=== PATIENT | male | born 1930 | race Caucasian/White ===

== ENCOUNTER 2018-05-11 10:50 | Inpatient (IN) | payer OTHER ==
--- NOTE | 2018-05-11 11:33 | PDOC ---
History of Present Illness - General Chief Complaint: Respiratory Stated Complaint: FEVER Time Seen by Provider: 05/11/18 11:24 History Source: Patient Exam Limitations: No Limitations - History of Present Illness Initial Comments: 05/11/18 11:34 87 yo M with a hx of DM and CAD (s/p IA 15 years ago) presents to the emergency department with weakness, shortness of breath, and nausea. Per the patient, he had an URI 3-4 weeks ago and has been having residual SOB at rest without GONZALEZ. Concurrently, he has had poor appetite during this same period of time. Throughout the 4 weeks, he has been developing on and off fevers with last fever yesterday night of 102 F. He was seen by his PMD and had negative blood work, but was given ciprofloxacin for a suspected UTI with completion of abx. He has epigastric discomfort that has been ongoing for 1 week with associative nausea. Last BM was 2 days ago but has a hx of constipation. Denies the following: chest pain, visual changes, headaches, hematuria, dysuria, and diarrhea. Allergies: NKDA Social: Hx of tobacco use. Denies current use of tobacco, alcohol, and substance abuse. 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) HTN: Yes Hypercholesterolemia: Yes - Immunization History Td Vaccination: No TDAP Vaccination: No Immunization Up to Date: Yes - Suicide/Smoking/Psychosocial Hx Smoking Status: No Smoking History: Unknown if ever smoked Years of Tobacco Use: 0 Have you smoked in the past 12 months: No Number of Cigarettes Smoked Daily: 0 If you are a former smoker, when did you quit?: 15 yrs ago Cigars Per Day: 0 Hx Alcohol Use: Yes (1-2 glasses of wine with dinner) Drug/Substance Use Hx: No Substance Use Type: None Hx Substance Use Treatment: No Review of Systems - Review of Systems Able to Perform ROS?: Yes Is the patient limited Tamazight proficient: No Constitutional: Yes: Chills, Fever, Weakness. No: Diaphoresis HEENTM: No: Recent change in vision, Ear Pain, Nose Pain, Throat Pain, Mouth Pain Respiratory: Yes: Shortness of Breath. No: Cough, Hemoptysis Cardiac (ROS): No: Chest Pain, Lightheadedness, Palpitations, Syncope, Chest Tightness ABD/GI: Yes: Constipated, Nausea, Poor Appetite, Poor Fluid Intake. No: Diarrhea, Rectal Bleeding, Vomiting, Tarry Stools : No: Burning, Dysuria, Hematuria Musculoskeletal: No: Back Pain, Joint Pain, Neck Pain Integumentary: No: Bruising, Erythema, Rash Neurological: Yes: Weakness. No: Headache, Numbness, Tingling, Tremors, Ataxia Psychiatric: Yes: Change in Appetite Endocrine: Yes: Unexplained Weight Loss Hematologic/Lymphatic: No: Anemia *Physical Exam - Vital Signs Last Vital Signs Temp Pulse Resp BP Pulse Ox 98.2 F 90 18 91/50 L 99 05/11/18 11:12 05/11/18 11:12 05/11/18 11:12 05/11/18 11:12 05/11/18 11:12 - Physical Exam General Appearance: Yes: Nourished, Appropriately Dressed, Other (appears tired during exam). No: Apparent Distress, Alcohol on Breath, Intoxicated HEENT: positive: EOMI, HALI, Normal ENT Inspection, Normal Voice, Symmetrical, TMs Normal, Pharynx Normal, Hearing Grossly Normal, Other (dry mucosa). negative: Pale Conjunctivae, Scleral Icterus (R), Scleral Icterus (L), Muffled/ Hoarse voice, Pharyngeal Erythema, Tonsillar Exudate, Tonsillar Erythema, Nasal Congestion, Rhinorrhea, Sinus Tenderness, Excessive drooling Neck: positive: Trachea midline, Supple. negative: Tender, Lymphadenopathy (R) , Lymphadenopathy (L), Tender lateral, Tender midline Respiratory/Chest: positive: Lungs Clear, Normal Breath Sounds. negative: Chest Tender, Respiratory Distress, Crackles, Rales, Rhonchi, Stridor Cardiovascular: positive: Regular Rhythm, Regular Rate, S1, S2. negative: Systolic Murmur Gastrointestinal/Abdominal: positive: Normal Bowel Sounds, Flat, Soft. negative : Tender, Guarding, Rebound Lymphatic: negative: Adenopathy Musculoskeletal: positive: Normal Inspection. negative: CVA Tenderness, Vertebral Tenderness Extremity: positive: Normal Capillary Refill, Normal Inspection, Normal Range of Motion. negative: Tender Integumentary: positive: Normal Color, Dry, Warm. negative: Swelling, Ecchymosis Neurologic: positive: customs officer II-XII NML intact, Fully Oriented, Alert, Normal Mood/ Affect, Normal Response, Motor Strength 5/5. negative: EOM Palsy, Facial Droop Moderate Sedation - Procedure Monitoring Vital Signs: Procedure Monitoring Vital Signs Temperature 98.2 F 05/11/18 11:12 Pulse Rate 90 05/11/18 11:12 Respiratory Rate 18 05/11/18 11:12 Blood Pressure 91/50 L 05/11/18 11:12 O2 Sat by Pulse Oximetry (%) 99 05/11/18 11:12 Heart Score/ECG Review - ECG Intrepretation Comment:: ventricular rate is 74 bpm, NC is 220, QTc is 432 ms, QRS is 96 ms. Sinus rhythm with 1st degree AV block. 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 no st elevations or depressions. ED Treatment Course - LABORATORY CBC & Chemistry Diagram: 05/11/18 12:21 05/11/18 12:10 Medical Decision Making - Medical Decision Making 87 yo M with a hx of DM and CAD (s/p IA 15 years ago) presents to the emergency department with weakness, shortness of breath, and nausea. Initial vitals; Initial Vital Signs Temp Pulse Resp BP Pulse Ox 98.2 F 90 18 91/50 L 99 05/11/18 11:12 05/11/18 11:12 05/11/18 11:12 05/11/18 11:12 05/11/18 11:12 Work up: ddx: fever of unknown origin throughout the 4 weeks. pancreatitis vs gastroenteritis vs gastritis vs GERD vs PNA Laboratory Tests 05/11/18 05/11/18 05/11/18 12:10 12:10 12:10 WBC RBC Hgb Hct MCV MCH MCHC RDW Plt Count MPV Absolute Neuts (auto) Neutrophils % Lymphocytes % Monocytes % Eosinophils % Basophils % Nucleated RBC % PT with INR 14.70 H INR 1.24 H PTT (Actin FS) 27.9 VBG pH 7.35 POC VBG pCO2 49.2 POC VBG pO2 17.4 L* Mixed VBG HCO3 26.4 H Sodium 138 Potassium 4.2 Chloride 104 Carbon Dioxide 26 Anion Gap 8 BUN 24 H Creatinine 1.4 H Creat Clearance w eGFR 48.16 Random Glucose 175 H Lactic Acid Calcium 9.3 Total Bilirubin 0.4 AST 19 ALT 33 Alkaline Phosphatase 88 Troponin I B-Natriuretic Peptide Total Protein 7.1 Albumin 3.4 Lipase Urine Color Urine Appearance Urine pH Ur Specific [place] Urine Protein Urine Glucose (UA) Urine Ketones Urine Blood Urine Nitrite Urine Bilirubin Urine Urobilinogen Ur Leukocyte Esterase 05/11/18 05/11/18 05/11/18 12:10 12:10 12:10 WBC RBC Hgb Hct MCV MCH MCHC RDW Plt Count MPV Absolute Neuts (auto) Neutrophils % Lymphocytes % Monocytes % Eosinophils % Basophils % Nucleated RBC % PT with INR INR PTT (Actin FS) VBG pH POC VBG pCO2 POC VBG pO2 Mixed VBG HCO3 Sodium Potassium Chloride Carbon Dioxide Anion Gap BUN Creatinine Creat Clearance w eGFR Random Glucose Lactic Acid 2.2 H* Calcium Total Bilirubin AST ALT Alkaline Phosphatase Troponin I < 0.02 B-Natriuretic Peptide 731.2 H Total Protein Albumin Lipase 873 H Urine Color Urine Appearance Urine pH Ur Specific [place] Urine Protein Urine Glucose (UA) Urine Ketones Urine Blood Urine Nitrite Urine Bilirubin Urine Urobilinogen Ur Leukocyte Esterase 05/11/18 05/11/18 12:21 12:24 WBC 11.7 H RBC 3.98 L Hgb 11.9 Hct 35.0 L D MCV 87.9 MCH 29.8 MCHC 33.9 RDW 12.3 Plt Count 366 D MPV 6.3 L Absolute Neuts (auto) 9.0 H Neutrophils % 77.4 Lymphocytes % 12.9 D Monocytes % 7.9 Eosinophils % 0.5 Basophils % 1.3 Nucleated RBC % 0 PT with INR INR PTT (Actin FS) VBG pH POC VBG pCO2 POC VBG pO2 Mixed VBG HCO3 Sodium Potassium Chloride Carbon Dioxide Anion Gap BUN Creatinine Creat Clearance w eGFR Random Glucose Lactic Acid Calcium Total Bilirubin AST ALT Alkaline Phosphatase Troponin I B-Natriuretic Peptide Total Protein Albumin Lipase Urine Color Dkyellow Urine Appearance Clear Urine pH 5.0 Ur Specific [place] 1.025 Urine Protein Negative Urine Glucose (UA) Negative Urine Ketones Negative Urine Blood Negative Urine Nitrite Negative Urine Bilirubin Negative Urine Urobilinogen Negative Ur Leukocyte Esterase Negative leukocytosis at 11.7, lactic acid at 2.2, creatinine at 1.4, lipase at 873, and bnp at 731. BNP elevated from previous draw. patient has pancreatitis given the lipase levels and epigastric abdomen discomfort. cxr was negative for acute process. blood cultures were drawn and will admit to the hospital for fever of unknown origin work up. will make the patient NPO and give fluids and tylenol. Dispo: Admit. *DC/Admit/Observation/Transfer Diagnosis at time of Disposition: Fever of unknown origin Pancreatitis Qualifiers: Chronicity: acute Pancreatitis type: unspecified pancreatitis type Acute pancreatitis complication: unspecified Qualified Code(s): K85.90 - Acute pancreatitis without necrosis or infection, unspecified - Referrals - Patient Instructions - Post Discharge Activity
[2018-05-11] MEDS ORDERED: SODIUM CHLORIDE 1,000 ML IV STA (11:39)
[2018-05-11] MEDS ORDERED: ONDANSETRON 4 MG/2 ML VIAL IVPB ONE (12:28)
[2018-05-11 12:29] LABS: VENOUS PC02 49.2 mmHg (38-52); VENOUS PH 7.35 (7.32-7.42)
[2018-05-11] MEDS ORDERED: ONDANSETRON 4 MG/2 ML VIAL ONE (12:29)
[2018-05-11 12:35] LABS: VENOUS PO2 17.4 mmHg (28-48)
[2018-05-11 12:37] LABS: INR 1.24 (0.83-1.09); PROTHROMBIN TIME (PATIENT) 14.7 SEC (9.7-13.0)
[2018-05-11 12:40] LABS: ACTIVATED PTT 27.9 SECONDS (25.2-36.5)
[2018-05-11 12:41] LABS: BASO % 1.3 % (0-2.0); EOS % 0.5 % (0-4.5); HEMOGLOBIN 11.9 GM/dL (11.7-16.9); LYMPH % 12.9 % (8-40); MCH 29.8 pg (25.7-33.7); MCHC 33.9 g/dl (32.0-35.9); MEAN CELL VOLUME 87.9 fl (80-96); MEAN PLT VOLUME 6.3 fl (7.5-11.1); MONO % 7.9 % (3.8-10.2); NEUT % 77.4 % (42.8-82.8); PLATELET COUNT 366 K/MM3 (134-434); RBC 3.98 M/mm3 (4.00-5.60); RDW 12.3 % (11.9-15.9); WHITE BLOOD COUNT 11.7 K/mm3 (4.0-10.0)
[2018-05-11 12:50] LABS: N-TERMINAL BNP 731.2 pg/ml (5-450)
[2018-05-11 12:51] LABS: URINE APPEARANCE CLEAR; URINE BILIRUBIN NEGATIVE (<2.0 mg/dL); URINE COLOR DKYELLOW; URINE GLUCOSE (UA) NEGATIVE (NEGATIVE); URINE KETONE NEGATIVE (NEGATIVE); URINE LEUK ESTERASE NEGATIVE (NEGATIVE); URINE NITRITE NEGATIVE (NEGATIVE); URINE PROTEIN NEGATIVE (NEGATIVE); URINE UROBILINOGEN NEGATIVE mg/dL (0.2-1.0)
[2018-05-11 13:04] LABS: ALBUMIN 3.4 g/dl (3.4-5.0); ALK PHOS 88 U/L (45-117); ANION GAP 8 MMOL/L (8-16); BILIRUBIN,TOTAL 0.4 mg/dL (0.2-1); BLOOD UREA NITROGEN 24 mg/dL (7-18); CALCIUM 9.3 mg/dL (8.5-10.1); CHLORIDE 104 mmol/L (98-107); CO2 26 mmol/L (21-32); CREATININE 1.4 mg/dL (0.55-1.3); GLUCOSE,RANDOM 175 mg/dL (74-106); POTASSIUM 4.2 mmol/L (3.5-5.1); SGOT/AST 19 U/L (15-37); SGPT/ALT 33 U/L (13-61); SODIUM 138 mmol/L (136-145); TOT PROT 7.1 g/dl (6.4-8.2)
--- NOTE | 2018-05-11 13:32 | PDOC ---
Attending Attestation - Resident Resident Name: SvetaHeri - ED Attending Attestation I have performed the following: I have examined & evaluated the patient, The case was reviewed & discussed with the resident, I agree w/resident's findings & plan, Exceptions are as noted - HPI HPI: 05/11/18 13:28 87 year old male with past medical history of ACS, hypertension, hyperlipidemia , diabetes presents with fever. Approximately 2 weeks ago, the patient developed a fever 102. At that time, patient was treated with ciprofloxacin for urinary tract infection. A week ago, the patient had blood work performed which was reportedly negative but was treated again with ciprofloxacin for urinary tract infection as her somewhat blood cells in the urine. He completed the course but the patient has been feeling persistently generally weak. Yesterday, noted fever 102 again but no other symptoms. Patient does have intermittent upper epigastric abdominal pain from time to time. Has had decreased appetite. Last bowel movement was couple days ago but the patient typically is constipated. Because of the weakness and fever, the patient came to the ER. - Physicial Exam PE: 05/11/18 13:32 GENERAL: Awake, alert, and fully oriented, in no acute distress HEAD: No signs of trauma EYES: EOMI, sclera anicteric, conjunctiva clear ENT: Auricles normal inspection, hearing grossly normal, nares patent, Moist mucosa NECK: Normal ROM, supple, LUNGS: Breath sounds equal, clear to auscultation bilaterally. No wheezes, and no crackles HEART: Regular rate and rhythm, normal S1 and S2, no murmurs, rubs or gallops ABDOMEN: Soft, nontender, No guarding, no rebound. No masses EXTREMITIES: Normal range of motion, no edema. No clubbing or cyanosis. No cords, erythema, or tenderness NEUROLOGICAL: Cranial nerves II through XII grossly intact. Normal speech SKIN: Warm, Dry, normal turgor, no rashes or lesions noted. - Medical Decision Making 05/11/18 13:32 Vital Signs Temp Pulse Resp BP Pulse Ox 98.2 F 90 18 91/50 L 99 05/11/18 11:12 05/11/18 11:12 05/11/18 11:12 05/11/18 11:12 05/11/18 11:12 CBC, BMP 05/11/18 12:21 05/11/18 12:10 CMP Sodium 138 mmol/L (136-145) 05/11/18 12:10 Potassium 4.2 mmol/L (3.5-5.1) 05/11/18 12:10 Chloride 104 mmol/L (98-107) 05/11/18 12:10 Carbon Dioxide 26 mmol/L (21-32) 05/11/18 12:10 Anion Gap 8 MMOL/L (8-16) 05/11/18 12:10 BUN 24 mg/dL (7-18) H 05/11/18 12:10 Creatinine 1.4 mg/dL (0.55-1.3) H 05/11/18 12:10 Creat Clearance w eGFR 48.16 (>60) 05/11/18 12:10 Random Glucose 175 mg/dL (74-106) H 05/11/18 12:10 Lactic Acid 2.2 mmol/L (0.4-2.0) H* 05/11/18 12:10 Calcium 9.3 mg/dL (8.5-10.1) 05/11/18 12:10 Total Bilirubin 0.4 mg/dL (0.2-1) 05/11/18 12:10 AST 19 U/L (15-37) 05/11/18 12:10 ALT 33 U/L (13-61) 05/11/18 12:10 Alkaline Phosphatase 88 U/L (45-117) 05/11/18 12:10 Troponin I < 0.02 ng/ml (0.00-0.05) 05/11/18 12:10 B-Natriuretic Peptide 731.2 pg/ml (5-450) H 05/11/18 12:10 Total Protein 7.1 g/dl (6.4-8.2) 05/11/18 12:10 Albumin 3.4 g/dl (3.4-5.0) 05/11/18 12:10 Lipase 873 U/L (73-393) H 05/11/18 12:10 Urine Test Results Urine Color Dkyellow 05/11/18 12:24 Urine Appearance Clear 05/11/18 12:24 Urine pH 5.0 (5.0-8.0) 05/11/18 12:24 Ur Specific [place] 1.025 (1.010-1.035) 05/11/18 12:24 Urine Protein Negative (NEGATIVE) 05/11/18 12:24 Urine Glucose (UA) Negative (NEGATIVE) 05/11/18 12:24 Urine Ketones Negative (NEGATIVE) 05/11/18 12:24 Urine Blood Negative (NEGATIVE) 05/11/18 12:24 Urine Nitrite Negative (NEGATIVE) 05/11/18 12:24 Urine Bilirubin Negative (<2.0 mg/dL) 05/11/18 12:24 Ur Leukocyte Esterase Negative (NEGATIVE) 05/11/18 12:24 Patient is labs reviewed. Patient demonstrated have pancreatitis with lipase is 873 with upper abdominal pain. The patient also has fever of unknown origin. It is unclear what the etiology is. Blood cultures are drawn. Given the circumstances, the patient should be admitted to the hospital for further management and evaluation. We'll give IV fluids and admit. Heart Score/ECG Review #1 ECG reviewed & interpreted by me at: 11:40 05/11/18 13:35 NSR 74, 1st degree AV block, left axis deviation, Q wave II, III, aVF, no std/ judy, Q wave V5-V6, QTC 432 msec, low voltage. NSR 74 wit
[2018-05-11] MEDS ORDERED: ACETAMINOPHEN 1000 MG/100 ML VIAL (NON FORMULARY) IVPB ONE (13:58)
[2018-05-11] MEDS ORDERED: ACETAMINOPHEN INJECTION 100 ML IVPB ONE (14:01)
[2018-05-12 02:59] VITALS: BMI 25.4
[2018-05-12] MEDS ORDERED: FLU VACCINE QUAD 60 MCG/0.5 ML (MDV 18-19) IM ONE (02:59)
[2018-05-12] MEDS: DEXTROSE 5%-0.45% SALINE 1,000 ML IV SCH ×3 (05:34→19:57)
[2018-05-12] MEDS ORDERED: VANCOMYCIN 1,250 MG in DEXTROSE 5%-WATER - 250 ML IVPB ONE (12:15)
--- NOTE | 2018-05-12 12:15 | HP ---
DATE OF ADMISSION: 05/11/2018 DATE OF DICTATION: 05/12/2018 HISTORY: This is an 87-year-old known to have diabetes known to me for a few years. He was complaining of fever for the last few weeks. He saw me a week ago in the office and was started on Augmentin p.o. The patient did not have any relief. Fever persistent so came to the ER yesterday. After coming to the hospital, his T-max is 99.5, but this morning his blood culture is positive for gram-positive cocci in pairs. PHYSICAL EXAMINATION: Vital Signs: On examination blood pressure 110/60, pulse 70, respirations 20, temperature 99.5. HEENT: Unremarkable. Neck: Supple. No JVD. Lungs: Clear. Heart: S1, S2 normal. No S3, S4. Abdomen: Soft. Extremities: Legs no edema. Neurologic: Grossly normal. DIAGNOSTIC STUDIES: Chest x-ray: No acute pulmonary disease. Labs: WBC 11.7, hemoglobin 11.9, platelet count 356. Chemistry: Electrolytes are normal. Creatinine 1.4, BUN 24, lactic acid 2.2. B peptide 731. Lipase high 873. IMPRESSION: 1. Septicemia. 2. Diabetes. PLAN: IV antibiotics. Vancomycin ordered. Case discussed with . He will evaluate the patient soon. Blood sugar, insulin coverage ordered. FINAL DIAGNOSIS: 1. Septicemia. 2. Diabetes. SOCRATES SINGH M.D. [id number]
[2018-05-12] MEDS ORDERED: PT OWN MED DRAWER 7, Y5N ONE ×2 (13:39→22:31)
--- NOTE | 2018-05-12 13:42 | CON.ID ---
Consult Consult Specialty:: infectious diseases Referred by:: Reason for Consultation:: on going fevers - History of Present Illness Chief Complaint: fevers and weakness History of Present Illness: 87 year old male with past medical history of ACS, hypertension, hyperlipidemia , diabetes presents with fever. Approximately 2 weeks ago, the patient developed a fever 102. At that time, patient was treated with ciprofloxacin for urinary tract infection. A week ago, the patient had blood work performed which was reportedly negative but was treated again with ciprofloxacin for urinary tract infection . Yesterday, noted fever 102 again but no other symptoms. Patient does have intermittent upper epigastric abdominal pain from time to time. Has had decreased appetite. Last bowel movement was couple days ago but the patient typically is constipated. patient runs a restaurant and according to he has been having alternate constipation and dirrhoea he also has lost some weight patient currently weak patient has been having chills with fever and sweating - History Source History Provided By: Patient, Family Member Limitations to Obtaining History: No Limitations - Past Medical History Cardio/Vascular: Yes: CAD, HTN Endocrine: Yes: Diabetes Mellitus - Past Surgical History Past Surgical History: Yes: None - Alcohol/Substance Use Hx Alcohol Use: Yes (1-2 glasses of wine with dinner) History of Substance Use: reports: None - Smoking History Smoking history: Former smoker Have you smoked in the past 12 months: No Aproximately how many cigarettes per day: 0 If you are a former smoker, when did you quit?: 15 yrs ago - Social History ADL: Independent History of Recent Travel: No Home Medications - Allergies Allergies/Adverse Reactions: Allergies Allergy/AdvReac Type Severity Reaction Status Date / Time No Known Drug Allergies Allergy Verified 05/11/18 11:07 - Home Medications Home Medications: Ambulatory Orders Aspirin [ASA -] 81 mg PO DAILY 06/04/12 Metoprolol Succinate [Toprol XL -] 25 mg PO DAILY 06/04/12 metFORMIN HCL [Glucophage -] 1,000 mg PO BID 06/04/12 Olmesartan Medoxomil [Benicar -] 20 mg PO DAILY 02/03/13 Atorvastatin Ca [Lipitor] 20 mg PO HS 04/27/15 Sitagliptin Phosphate [Januvia -] 100 mg PO DAILY 04/27/15 Review of Systems - Review of Systems Constitutional: reports: Chills, Fever, Weakness, Other (sweats) HENT: reports: No Symptoms Neck: reports: No Symptoms Cardiovascular: reports: No Symptoms Respiratory: reports: No Symptoms Gastrointestinal: reports: Bloating, Constipation, Diarrhea Genitourinary: reports: No Symptoms Breasts: reports: No Symptoms Reported Musculoskeletal: reports: No Symptoms Integumentary: reports: No Symptoms Neurological: reports: No Symptoms Endocrine: reports: No Symptoms Hematology/Lymphatic: reports: No Symptoms Psychiatric: reports: No Symptoms Physical Exam Vital Signs: Vital Signs Temperature 98.1 F 05/12/18 09:04 Pulse Rate 70 05/12/18 09:04 Respiratory Rate 18 05/12/18 09:04 Blood Pressure 111/56 L 05/12/18 09:04 O2 Sat by Pulse Oximetry (%) 97 05/11/18 21:00 Constitutional: Yes: Well Nourished, Calm, Mild Distress, Other (weakness) Neck: Yes: Supple, Trachea Midline Respiratory: Yes: Regular, CTA Bilaterally Gastrointestinal: Yes: Normal Bowel Sounds, Soft Musculoskeletal: Yes: WNL Extremities: Yes: WNL Neurological: Yes: Alert, Oriented Psychiatric: Yes: Alert, Oriented Labs: CBC, BMP 05/11/18 12:21 05/11/18 12:10 Imaging - Results Chest X-ray: Report Reviewed, Image Reviewed Assessment/Plan this patient coming with ongoing fevers who has multiple medical problems gm positive bacteremia constipation/dirrhoea chills fevers plan will start patient on zosyn will order a ct scan of the abd and echo repeat blood cx tomorrow hydration rest continue current mgmt
--- NOTE | 2018-05-12 14:42 | EKG ---
Test Reason : Blood Pressure : / mmHG Vent. Rate : 074 BPM Atrial Rate : 074 BPM P-R Int : 220 ms QRS Dur : 096 ms QT Int : 390 ms P-R-T Axes : 023 -56 046 degrees QTc Int : 432 ms POOR DATA QUALITY, INTERPRETATION MAY BE ADVERSELY AFFECTED SINUS RHYTHM WITH 1ST DEGREE A-V BLOCK LEFT AXIS DEVIATION LOW VOLTAGE QRS INFERIOR INFARCT (CITED ON OR BEFORE 02-APR-2003) POSSIBLE ANTEROLATERAL INFARCT (CITED ON OR BEFORE 02-APR-2003) ABNORMAL ECG WHEN COMPARED WITH ECG OF 27-APR-2015 05:28, NO SIGNIFICANT CHANGE WAS FOUND Confirmed by Kain Gant MD ([id number]) on 05/12/2018 2:42:30 PM Referred By: Confirmed By:Kain Gant MD
[2018-05-12] MEDS ORDERED: PIPERACILLIN/TAZOBACTAM 3.375 GM VIAL IVPB ONE ×2 (15:35→19:25)
[2018-05-12] MEDS ORDERED: DEXTROSE 5%-WATER - 50 ML IVPB ONE ×2 (15:36→19:25)
[2018-05-12] MEDS: PIPERACILLIN/TAZOB 3.375 GM 3.375 GM in DEXTROSE 5%-WATER - 50 ML IVPB SCH ×2 (15:47→19:56)
[2018-05-12] MEDS: INSULIN SLIDING SCALE (NOVOLOG) 1 VIAL SQ SCH (18:20)
[2018-05-13] MEDS: DEXTROSE 5%-0.45% SALINE 1,000 ML IV SCH ×3 (00:01→19:16)
[2018-05-13] MEDS ORDERED: PIPERACILLIN/TAZOBACTAM 3.375 GM VIAL IVPB ONE ×4 (01:29→23:44)
[2018-05-13] MEDS ORDERED: DEXTROSE 5%-WATER - 50 ML IVPB ONE ×4 (01:29→23:44)
[2018-05-13] MEDS: PIPERACILLIN/TAZOB 3.375 GM 3.375 GM in DEXTROSE 5%-WATER - 50 ML IVPB SCH ×3 (01:54→17:59)
[2018-05-13] MEDS: INSULIN SLIDING SCALE (NOVOLOG) 1 VIAL SQ SCH ×3 (06:13→17:28)
[2018-05-13 07:36] LABS: HEMATOCRIT 31.3 % (35.4-49); HEMOGLOBIN 10.8 GM/dL (11.7-16.9); MCH 30.5 pg (25.7-33.7); MCHC 34.5 g/dl (32.0-35.9); MEAN CELL VOLUME 88.5 fl (80-96); MEAN PLT VOLUME 6.3 fl (7.5-11.1); PLATELET COUNT 350 K/MM3 (134-434); RBC 3.54 M/mm3 (4.00-5.60); RDW 12.3 % (11.9-15.9)
[2018-05-13 08:04] LABS: ALBUMIN 2.7 g/dl (3.4-5.0); ALK PHOS 76 U/L (45-117); ANION GAP 6 MMOL/L (8-16); BILIRUBIN,TOTAL 0.4 mg/dL (0.2-1); BLOOD UREA NITROGEN 8 mg/dL (7-18); CALCIUM 8.5 mg/dL (8.5-10.1); CHLORIDE 103 mmol/L (98-107); CO2 27 mmol/L (21-32); CREATININE 0.9 mg/dL (0.55-1.3); GLUCOSE,RANDOM 247 mg/dL (74-106); POTASSIUM 4.7 mmol/L (3.5-5.1); SGOT/AST 19 U/L (15-37); SGPT/ALT 39 U/L (13-61); SODIUM 136 mmol/L (136-145)
--- NOTE | 2018-05-13 11:49 | PN ---
Progress Note, Physician History of Present Illness: patient starting to feel better no complaints with him - Current Medication List Current Medications: Active Medications Dextrose/Sodium Chloride (D5-1/2ns -) 1,000 mls @ 125 mls/hr IV ASDIR JOSE Last Admin: 05/13/18 00:01 Dose: 125 mls/hr Piperacillin Sod/Tazobactam (Sod 3.375 gm/ Dextrose) 50 mls @ 100 mls/hr IVPB Q8H-IV JOSE; Protocol Last Admin: 05/13/18 10:39 Dose: 100 mls/hr Insulin Aspart (Novolog Vial Sliding Scale -) 1 vial SQ TIDAC JOSE; Protocol Last Admin: 05/13/18 11:11 Dose: 2 units - Objective Vital Signs: Vital Signs Temperature 98.6 F 05/13/18 06:00 Pulse Rate 71 05/13/18 06:00 Respiratory Rate 20 05/13/18 06:00 Blood Pressure 116/58 L 05/13/18 06:00 O2 Sat by Pulse Oximetry (%) 97 05/12/18 21:00 Constitutional: Yes: No Distress, Calm Cardiovascular: Yes: Regular Rate and Rhythm Respiratory: Yes: Regular, CTA Bilaterally Gastrointestinal: Yes: Normal Bowel Sounds, Soft Musculoskeletal: Yes: WNL Extremities: Yes: WNL Neurological: Yes: Alert, Oriented Psychiatric: Yes: Alert, Oriented Labs: CBC, BMP 05/13/18 06:40 05/13/18 06:40 INR, PTT INR 1.24 (0.83-1.09) H 05/11/18 12:10 Assessment/Plan gm positive bacteremia constipation/dirrhoea chills fevers plan continue abx await for ct scan read images seen will order repeat blood cx tomorrow rest as per the team
--- NOTE | 2018-05-13 12:24 | PN ---
Progress Note, Physician Chief Complaint: Feels better History of Present Illness: Group D strep septicemia cecilio Rouse ID consult appreciated, on IV zosyn - Current Medication List Current Medications: Active Medications Dextrose/Sodium Chloride (D5-1/2ns -) 1,000 mls @ 125 mls/hr IV ASDIR JOSE Last Admin: 05/13/18 00:01 Dose: 125 mls/hr Piperacillin Sod/Tazobactam (Sod 3.375 gm/ Dextrose) 50 mls @ 100 mls/hr IVPB Q8H-IV JOSE; Protocol Last Admin: 05/13/18 10:39 Dose: 100 mls/hr Insulin Aspart (Novolog Vial Sliding Scale -) 1 vial SQ TIDAC JOSE; Protocol Last Admin: 05/13/18 11:11 Dose: 2 units - Objective Vital Signs: Vital Signs Temperature 98.6 F 05/13/18 06:00 Pulse Rate 71 05/13/18 06:00 Respiratory Rate 20 05/13/18 06:00 Blood Pressure 116/58 L 05/13/18 06:00 O2 Sat by Pulse Oximetry (%) 97 05/12/18 21:00 Constitutional: Yes: No Distress Eyes: Yes: WNL HENT: Yes: WNL Neck: Yes: WNL Cardiovascular: Yes: WNL Respiratory: Yes: WNL Gastrointestinal: Yes: Normal Bowel Sounds ...Rectal Exam: Yes: WNL Genitourinary: Yes: WNL Breast(s): Yes: WNL Musculoskeletal: Yes: WNL Extremities: Yes: WNL Peripheral Pulses WNL: Yes Neurological: Yes: Alert Psychiatric: Yes: Alert Labs: CBC, BMP 05/13/18 06:40 05/13/18 06:40 INR, PTT INR 1.24 (0.83-1.09) H 05/11/18 12:10 Assessment/Plan Continue same trt
[2018-05-14] MEDS: DEXTROSE 5%-0.45% SALINE 1,000 ML IV SCH (01:55)
[2018-05-14] MEDS: PIPERACILLIN/TAZOB 3.375 GM 3.375 GM in DEXTROSE 5%-WATER - 50 ML IVPB SCH ×3 (01:55→17:04)
[2018-05-14] MEDS ORDERED: INSULIN (NOVOLOG) ASPART 100 UNITS/ML 10ML VIAL ONE ×2 (07:33→11:43)
[2018-05-14] MEDS ORDERED: INSULIN (LEVEMIR) 100 UNITS/ML UNITS SQ ONE (07:34)
[2018-05-14] MEDS: INSULIN SLIDING SCALE (NOVOLOG) 1 VIAL SQ SCH ×3 (08:26→17:18)
--- NOTE | 2018-05-14 09:05 | PN ---
Progress Note, Physician Chief Complaint: Feels better History of Present Illness: CT scan of abdomen showed bilateral nephrolithiasis no hydro nephrosis - Current Medication List Current Medications: Active Medications Piperacillin Sod/Tazobactam (Sod 3.375 gm/ Dextrose) 50 mls @ 100 mls/hr IVPB Q8H-IV JOSE; Protocol Last Admin: 05/14/18 01:55 Dose: 100 mls/hr Insulin Aspart (Novolog Vial Sliding Scale -) 1 vial SQ TIDAC JOSE; Protocol Last Admin: 05/14/18 08:26 Dose: 4 units - Objective Vital Signs: Vital Signs Temperature 98.2 F 05/14/18 07:51 Pulse Rate 62 05/14/18 07:51 Respiratory Rate 20 05/14/18 07:51 Blood Pressure 136/62 05/14/18 07:51 O2 Sat by Pulse Oximetry (%) 97 05/13/18 21:00 Constitutional: Yes: No Distress Eyes: Yes: WNL HENT: Yes: WNL Neck: Yes: WNL Cardiovascular: Yes: WNL Respiratory: Yes: WNL Gastrointestinal: Yes: WNL ...Rectal Exam: Yes: Deferred Breast(s): Yes: WNL Musculoskeletal: Yes: WNL Edema: No Peripheral Pulses WNL: Yes Integumentary: Yes: WNL Neurological: Yes: Alert Labs: CBC, BMP 05/13/18 06:40 05/13/18 06:40 INR, PTT INR 1.24 (0.83-1.09) H 05/11/18 12:10 Assessment/Plan DC iv fluids Advance diet
[2018-05-14] MEDS ORDERED: DEXTROSE 5%-WATER - 50 ML IVPB ONE ×2 (09:12→16:23)
[2018-05-14] MEDS ORDERED: PIPERACILLIN/TAZOBACTAM 3.375 GM VIAL IVPB ONE ×2 (09:12→16:23)
--- NOTE | 2018-05-14 12:11 | PN ---
Progress Note, Physician History of Present Illness: patient starting to feel better no complaints remaining afebrile - Current Medication List Current Medications: Active Medications Piperacillin Sod/Tazobactam (Sod 3.375 gm/ Dextrose) 50 mls @ 100 mls/hr IVPB Q8H-IV JOSE; Protocol Last Admin: 05/14/18 09:35 Dose: 100 mls/hr Insulin Aspart (Novolog Vial Sliding Scale -) 1 vial SQ TIDAC JOSE; Protocol Last Admin: 05/14/18 11:50 Dose: 2 units - Objective Vital Signs: Vital Signs Temperature 98.2 F 05/14/18 07:51 Pulse Rate 62 05/14/18 07:51 Respiratory Rate 20 05/14/18 07:51 Blood Pressure 136/62 05/14/18 07:51 O2 Sat by Pulse Oximetry (%) 97 05/13/18 21:00 Constitutional: Yes: No Distress, Calm Cardiovascular: Yes: Regular Rate and Rhythm Respiratory: Yes: Regular, CTA Bilaterally Gastrointestinal: Yes: Normal Bowel Sounds, Soft Musculoskeletal: Yes: WNL Extremities: Yes: WNL Neurological: Yes: Alert, Oriented Psychiatric: Yes: Alert, Oriented Labs: CBC, BMP 05/13/18 06:40 05/13/18 06:40 INR, PTT INR 1.24 (0.83-1.09) H 05/11/18 12:10 Assessment/Plan gm positive bacteremia constipation/dirrhoea chills fevers plan continue abx ct report noted repeat blood cx report pending rest as per the team
[2018-05-14 15:18] LABS: BABESIA MICROTI ANTIBODY IGG <1:10 (Neg:<1:10); BABESIA MICROTI ANTIBODY IGM <1:10 (Neg:<1:10)
--- NOTE | 2018-05-14 15:50 | ECHO ---
Name: ASCENCION BATRES Exam:Adult Echocardiogram Study Date: 05/14/2018 03:11 PM Age: 87 yrs Reason For Study: R/O Endocarditis Height: 74 in Weight: 198 lb BSA: 2.2 m2 MMode/2D Measurements & Calculations IVSd: 0.87 cm Ao root diam: 3.5 cm LVIDd: 5.0 cm LA dimension: 4.0 cm LVIDs: 3.3 cm LVPWd: 0.85 cm EDV(Teich): 120.6 ml TAPSE: 3.1 cm ESV(Teich): 44.0 ml Doppler Measurements & Calculations MV E max ke: 65.4 cm/sec Ao V2 max: 114.8 cm/sec MV A max ke: 77.0 cm/sec Ao max P.3 mmHg MV E/A: 0.85 AI P1/2t: 945.0 msec MV dec time: 0.15 sec AI max ke: 316.9 cm/sec LV V1 max P.7 mmHg AI max P.4 mmHg LV V1 max: 65.5 cm/sec AI dec slope: 98.2 cm/sec2 TR max ke: 219.2 cm/sec Med Peak E' Ke: 8.7 cm/sec TR max P.3 mmHg Med E/e': 7.5 Lat Peak E' Ke: 8.3 cm/sec Lat E/e': 7.9 Procedure A complete two-dimensional transthoracic echocardiogram was performed (2D, M-mode, Doppler and color flow Doppler). Left Ventricle The left ventricle is normal in size. Left ventricular systolic function is normal. Ejection Fraction = 55- 60%. No regional wall motion abnormalities noted. Right Ventricle The right ventricle is normal size. The right ventricular systolic function is normal. Atria The left atrial size is normal. Right atrial size is normal. Mitral Valve There is mild mitral annular calcification. There is no mitral regurgitation noted. Tricuspid Valve The tricuspid valve is normal in structure and function. There is mild tricuspid regurgitation. Right ventricular systolic pressure is normal. Aortic Valve There is mild aortic sclerosis.;. Trace aortic regurgitation. Pulmonic Valve The pulmonic valve is not well visualized. Great Vessels The aortic root is normal size. Pericardium/Pleura There is no pericardial effusion. Interpretation Summary The left ventricle is normal in size. Left ventricular systolic function is normal. No regional wall motion abnormalities noted. Ejection Fraction = 55-60%. The right ventricular systolic function is normal. The left atrial size is normal. Right atrial size is normal. There is mild mitral annular calcification. There is mild tricuspid regurgitation. Right ventricular systolic pressure is normal. There is mild aortic sclerosis. Trace aortic regurgitation. There is no pericardial effusion. Previous study is not available for comparison Drake Hudson MD 05/14/2018 03:49 PM
[2018-05-15] MEDS ORDERED: PIPERACILLIN/TAZOBACTAM 3.375 GM VIAL IVPB ONE ×3 (00:02→17:45)
[2018-05-15] MEDS ORDERED: DEXTROSE 5%-WATER - 50 ML IVPB ONE ×3 (00:03→17:45)
[2018-05-15] MEDS: PIPERACILLIN/TAZOB 3.375 GM 3.375 GM in DEXTROSE 5%-WATER - 50 ML IVPB SCH ×3 (01:56→18:01)
[2018-05-15] MEDS: INSULIN SLIDING SCALE (NOVOLOG) 1 VIAL SQ SCH ×3 (06:22→18:02)
--- NOTE | 2018-05-15 09:04 | PN ---
Progress Note, Physician Chief Complaint: Feels better History of Present Illness: Septicemia,Group D strep On zosyn Echo neg - Current Medication List Current Medications: Active Medications Piperacillin Sod/Tazobactam (Sod 3.375 gm/ Dextrose) 50 mls @ 100 mls/hr IVPB Q8H-IV JOSE; Protocol Last Admin: 05/15/18 01:56 Dose: 100 mls/hr Insulin Aspart (Novolog Vial Sliding Scale -) 1 vial SQ TIDAC JOSE; Protocol Last Admin: 05/15/18 06:22 Dose: 2 units - Objective Vital Signs: Vital Signs Temperature 98.1 F 05/15/18 06:13 Pulse Rate 64 05/15/18 06:13 Respiratory Rate 20 05/15/18 06:13 Blood Pressure 134/67 05/15/18 06:13 O2 Sat by Pulse Oximetry (%) 97 05/13/18 21:00 Constitutional: Yes: No Distress Eyes: Yes: WNL HENT: Yes: WNL Neck: Yes: WNL Cardiovascular: Yes: WNL Respiratory: Yes: WNL Gastrointestinal: Yes: WNL ...Rectal Exam: Yes: Deferred Genitourinary: Yes: WNL Breast(s): Yes: WNL Musculoskeletal: Yes: WNL Edema: No Peripheral Pulses WNL: Yes Neurological: Yes: Alert ...Motor Strength: WNL Psychiatric: Yes: Alert Labs: CBC, BMP 05/13/18 06:40 05/13/18 06:40 INR, PTT INR 1.24 (0.83-1.09) H 05/11/18 12:10 Assessment/Plan DC iv fluids Advance diet Rpt blood culture report pending Continue same trt
--- NOTE | 2018-05-15 13:55 | PN ---
Progress Note, Physician History of Present Illness: feels much better no complaints all results noted constipation - Current Medication List Current Medications: Active Medications Piperacillin Sod/Tazobactam (Sod 3.375 gm/ Dextrose) 50 mls @ 100 mls/hr IVPB Q8H-IV JOSE; Protocol Last Admin: 05/15/18 09:59 Dose: 100 mls/hr Insulin Aspart (Novolog Vial Sliding Scale -) 1 vial SQ TIDAC JOSE; Protocol Last Admin: 05/15/18 12:23 Dose: 2 units - Objective Vital Signs: Vital Signs Temperature 97.6 F 05/15/18 10:00 Pulse Rate 66 05/15/18 10:00 Respiratory Rate 20 05/15/18 10:00 Blood Pressure 127/55 L 05/15/18 10:00 O2 Sat by Pulse Oximetry (%) 97 05/15/18 09:00 Constitutional: Yes: No Distress, Calm Cardiovascular: Yes: Regular Rate and Rhythm Respiratory: Yes: Regular, CTA Bilaterally Gastrointestinal: Yes: Normal Bowel Sounds, Soft Musculoskeletal: Yes: WNL Extremities: Yes: WNL Neurological: Yes: Alert, Oriented Psychiatric: Yes: Alert, Oriented Labs: CBC, BMP 05/13/18 06:40 05/13/18 06:40 INR, PTT INR 1.24 (0.83-1.09) H 05/11/18 12:10 Assessment/Plan gm positive bacteremia constipation/dirrhoea chills fevers plan continue abx cx report noted will need total another 3 days of iv abx then will switch to oral
[2018-05-15] MEDS: POLYETHYLENE GLYCOL 3350 119 GM BTL PO PRN (16:25)
[2018-05-16] MEDS ORDERED: PIPERACILLIN/TAZOBACTAM 3.375 GM VIAL IVPB ONE ×3 (01:52→16:54)
[2018-05-16] MEDS ORDERED: DEXTROSE 5%-WATER - 50 ML IVPB ONE ×3 (01:52→16:55)
[2018-05-16] MEDS: PIPERACILLIN/TAZOB 3.375 GM 3.375 GM in DEXTROSE 5%-WATER - 50 ML IVPB SCH ×3 (01:57→18:04)
[2018-05-16] MEDS: INSULIN SLIDING SCALE (NOVOLOG) 1 VIAL SQ SCH ×3 (06:50→18:04)
[2018-05-16] MEDS ORDERED: PT OWN MED DRAWER 7, Y5N ONE (08:54)
--- NOTE | 2018-05-16 09:08 | PN ---
Progress Note, Physician Chief Complaint: Constipated History of Present Illness: Needs two more days of IV antibiotics - Current Medication List Current Medications: Active Medications Piperacillin Sod/Tazobactam (Sod 3.375 gm/ Dextrose) 50 mls @ 100 mls/hr IVPB Q8H-IV JOSE; Protocol Last Admin: 05/16/18 01:57 Dose: 100 mls/hr Insulin Aspart (Novolog Vial Sliding Scale -) 1 vial SQ TIDAC [facility]; Protocol Last Admin: 05/16/18 06:50 Dose: 2 units Polyethylene Glycol (Miralax (For Daily Use) -) 17 gm PO BID PRN PRN Reason: CONSTIPATION Last Admin: 05/15/18 16:25 Dose: 17 grams - Objective Vital Signs: Vital Signs Temperature 98.4 F 05/16/18 07:04 Pulse Rate 62 05/16/18 07:04 Respiratory Rate 20 05/16/18 07:04 Blood Pressure 133/64 05/16/18 07:04 O2 Sat by Pulse Oximetry (%) 97 05/15/18 20:08 Constitutional: Yes: No Distress Eyes: Yes: WNL HENT: Yes: WNL Neck: Yes: WNL Cardiovascular: Yes: WNL Respiratory: Yes: WNL Gastrointestinal: Yes: WNL ...Rectal Exam: Yes: Deferred Genitourinary: Yes: WNL Edema: No Peripheral Pulses WNL: Yes Labs: CBC, BMP 05/13/18 06:40 05/13/18 06:40 INR, PTT INR 1.24 (0.83-1.09) H 05/11/18 12:10 Assessment/Plan Miralax for constipation
[2018-05-16] MEDS: POLYETHYLENE GLYCOL 3350 119 GM BTL PO PRN (09:25)
--- NOTE | 2018-05-16 12:42 | PN ---
Progress Note, Physician History of Present Illness: improving cx have turned negative - Current Medication List Current Medications: Active Medications Piperacillin Sod/Tazobactam (Sod 3.375 gm/ Dextrose) 50 mls @ 100 mls/hr IVPB Q8H-IV JOSE; Protocol Last Admin: 05/16/18 09:25 Dose: 100 mls/hr Insulin Aspart (Novolog Vial Sliding Scale -) 1 vial SQ TIDAC JOSE; Protocol Last Admin: 05/16/18 11:43 Dose: 4 units Polyethylene Glycol (Miralax (For Daily Use) -) 17 gm PO BID PRN PRN Reason: CONSTIPATION Last Admin: 05/16/18 09:25 Dose: 17 grams - Objective Vital Signs: Vital Signs Temperature 98.4 F 05/16/18 07:04 Pulse Rate 62 05/16/18 07:04 Respiratory Rate 20 05/16/18 07:04 Blood Pressure 133/64 05/16/18 07:04 O2 Sat by Pulse Oximetry (%) 97 05/15/18 20:08 Constitutional: Yes: No Distress, Calm Cardiovascular: Yes: Regular Rate and Rhythm Respiratory: Yes: Regular, CTA Bilaterally Gastrointestinal: Yes: Normal Bowel Sounds, Soft Musculoskeletal: Yes: WNL Extremities: Yes: WNL Neurological: Yes: Alert, Oriented Psychiatric: Yes: Alert, Oriented Labs: CBC, BMP 05/13/18 06:40 05/13/18 06:40 INR, PTT INR 1.24 (0.83-1.09) H 05/11/18 12:10 Assessment/Plan gm positive bacteremia constipation/dirrhoea chills fevers plan continue abx cx report noted will need total another 2days of iv abx then can switch to oral augmentin for another 5 days
[2018-05-17] MEDS ORDERED: DEXTROSE 5%-WATER - 50 ML IVPB ONE ×3 (01:36→16:49)
[2018-05-17] MEDS ORDERED: PIPERACILLIN/TAZOBACTAM 3.375 GM VIAL IVPB ONE ×3 (01:36→16:48)
[2018-05-17] MEDS: PIPERACILLIN/TAZOB 3.375 GM 3.375 GM in DEXTROSE 5%-WATER - 50 ML IVPB SCH ×3 (02:14→17:00)
[2018-05-17] MEDS: INSULIN SLIDING SCALE (NOVOLOG) 1 VIAL SQ SCH ×3 (06:56→17:06)
--- NOTE | 2018-05-17 08:40 | PN ---
Progress Note, Physician Chief Complaint: Feels better History of Present Illness: On IV antibiotics for cepticemia - Current Medication List Current Medications: Active Medications Piperacillin Sod/Tazobactam (Sod 3.375 gm/ Dextrose) 50 mls @ 100 mls/hr IVPB Q8H-IV JOSE; Protocol Last Admin: 05/17/18 02:14 Dose: 100 mls/hr Insulin Aspart (Novolog Vial Sliding Scale -) 1 vial SQ TIDAC JOSE; Protocol Last Admin: 05/17/18 06:56 Dose: 2 units Polyethylene Glycol (Miralax (For Daily Use) -) 17 gm PO BID PRN PRN Reason: CONSTIPATION Last Admin: 05/16/18 09:25 Dose: 17 grams - Objective Vital Signs: Vital Signs Temperature 97.7 F 05/17/18 08:09 Pulse Rate 64 05/17/18 08:09 Respiratory Rate 18 05/17/18 08:09 Blood Pressure 141/77 05/17/18 08:09 O2 Sat by Pulse Oximetry (%) 97 05/15/18 20:08 Constitutional: Yes: No Distress Eyes: Yes: WNL HENT: Yes: WNL Neck: Yes: WNL Cardiovascular: Yes: WNL Respiratory: Yes: WNL Gastrointestinal: Yes: WNL ...Rectal Exam: Yes: Deferred Genitourinary: Yes: WNL Breast(s): Yes: WNL Musculoskeletal: Yes: Muscle Weakness Peripheral Pulses WNL: Yes Neurological: Yes: Alert ...Motor Strength: WNL Psychiatric: Yes: Alert Labs: CBC, BMP 05/13/18 06:40 05/13/18 06:40 INR, PTT INR 1.24 (0.83-1.09) H 05/11/18 12:10 Assessment/Plan Continue same trt
--- NOTE | 2018-05-17 15:42 | PN ---
Progress Note, Physician History of Present Illness: patient stable doing well - Current Medication List Current Medications: Active Medications Piperacillin Sod/Tazobactam (Sod 3.375 gm/ Dextrose) 50 mls @ 100 mls/hr IVPB Q8H-IV JOSE; Protocol Last Admin: 05/17/18 10:19 Dose: 100 mls/hr Insulin Aspart (Novolog Vial Sliding Scale -) 1 vial SQ TIDAC JOSE; Protocol Last Admin: 05/17/18 12:29 Dose: 4 units Polyethylene Glycol (Miralax (For Daily Use) -) 17 gm PO BID PRN PRN Reason: CONSTIPATION Last Admin: 05/16/18 09:25 Dose: 17 grams - Objective Vital Signs: Vital Signs Temperature 97.9 F 05/17/18 15:00 Pulse Rate 67 05/17/18 15:00 Respiratory Rate 05/17/18 15:00 Blood Pressure 125/68 05/17/18 15:00 O2 Sat by Pulse Oximetry (%) 97 05/15/18 20:08 Constitutional: Yes: No Distress, Calm Cardiovascular: Yes: Regular Rate and Rhythm Respiratory: Yes: Regular, CTA Bilaterally Gastrointestinal: Yes: Normal Bowel Sounds, Soft Musculoskeletal: Yes: WNL Extremities: Yes: WNL Neurological: Yes: Alert, Oriented Psychiatric: Yes: Alert, Oriented Labs: CBC, BMP 05/13/18 06:40 05/13/18 06:40 INR, PTT INR 1.24 (0.83-1.09) H 05/11/18 12:10 Assessment/Plan gm positive bacteremia constipation/dirrhoea chills fevers plan continue abx cx report noted tomorrow last day of abx then can switch to oral augmentin for another 5 days
[2018-05-18] MEDS ORDERED: DEXTROSE 5%-WATER - 50 ML IVPB ONE ×2 (01:08→08:31)
[2018-05-18] MEDS ORDERED: PIPERACILLIN/TAZOBACTAM 3.375 GM VIAL IVPB ONE ×2 (01:08→08:30)
[2018-05-18] MEDS: PIPERACILLIN/TAZOB 3.375 GM 3.375 GM in DEXTROSE 5%-WATER - 50 ML IVPB SCH ×3 (01:29→11:20)
[2018-05-18] MEDS: INSULIN SLIDING SCALE (NOVOLOG) 1 VIAL SQ SCH ×2 (06:58→12:39)
[2018-05-18 08:20] VITALS: BP 146/75; PULSE 61; TEMP 97.5
--- NOTE | 2018-05-18 08:39 | DS ---
Physical Examination Vital Signs: Vital Signs Temperature 97.5 F L 05/18/18 08:07 Pulse Rate 61 05/18/18 08:07 Respiratory Rate 16 05/18/18 08:07 Blood Pressure 146/75 05/18/18 08:07 O2 Sat by Pulse Oximetry (%) 97 05/15/18 20:08 Findings/Remarks: Admitted with fever,blood culture grew Grup D strep Treated with Zosyn ,improved,no fever DC home on PO antibiotics Constitutional: Yes: No Distress Eyes: Yes: WNL HENT: Yes: WNL Neck: Yes: WNL Cardiovascular: Yes: WNL Respiratory: Yes: WNL Gastrointestinal: Yes: WNL ...Rectal Exam: Yes: Deferred Musculoskeletal: Yes: WNL Edema: No Neurological: Yes: WNL Psychiatric: Yes: Alert Labs: CBC, BMP 05/13/18 06:40 05/13/18 06:40 Discharge Summary Reason For Visit: FEVER OF UNKNOWN ORIGIN,PANCREATITIS Current Active Problems Fever of unknown origin (Acute) Pancreatitis (Acute) - Instructions Referrals: Tyrone Jensen MD [Primary Care Provider] - - Home Medications Comprehensive Discharge Medication List: Ambulatory Orders Aspirin [ASA -] 81 mg PO DAILY 06/04/12 Metoprolol Succinate [Toprol XL -] 25 mg PO DAILY 06/04/12 metFORMIN HCL [Glucophage -] 1,000 mg PO BID 06/04/12 Olmesartan Medoxomil [Benicar -] 20 mg PO DAILY 02/03/13 Atorvastatin Ca [Lipitor] 20 mg PO HS 04/27/15 Sitagliptin Phosphate [Januvia -] 100 mg PO DAILY 04/27/15
--- NOTE | 2018-05-18 09:37 | PN ---
Progress Note, Physician History of Present Illness: patient stable no new issues feels much better - Current Medication List Current Medications: Active Medications Piperacillin Sod/Tazobactam (Sod 3.375 gm/ Dextrose) 50 mls @ 100 mls/hr IVPB Q8H-IV JOSE; Protocol Last Admin: 05/18/18 08:34 Dose: 100 mls/hr Insulin Aspart (Novolog Vial Sliding Scale -) 1 vial SQ TIDAC JOSE; Protocol Last Admin: 05/18/18 06:58 Dose: 2 units Polyethylene Glycol (Miralax (For Daily Use) -) 17 gm PO BID PRN PRN Reason: CONSTIPATION Last Admin: 05/16/18 09:25 Dose: 17 grams - Objective Vital Signs: Vital Signs Temperature 97.5 F L 05/18/18 08:07 Pulse Rate 61 05/18/18 08:07 Respiratory Rate 16 05/18/18 08:07 Blood Pressure 146/75 05/18/18 08:07 O2 Sat by Pulse Oximetry (%) 97 05/15/18 20:08 Constitutional: Yes: No Distress, Calm Cardiovascular: Yes: Regular Rate and Rhythm Respiratory: Yes: Regular, CTA Bilaterally Gastrointestinal: Yes: Normal Bowel Sounds, Soft Musculoskeletal: Yes: WNL Extremities: Yes: WNL Neurological: Yes: Alert, Oriented Psychiatric: Yes: Alert, Oriented Labs: CBC, BMP 05/13/18 06:40 05/13/18 06:40 INR, PTT INR 1.24 (0.83-1.09) H 05/11/18 12:10 Assessment/Plan gm positive bacteremia constipation/dirrhoea chills fevers plan continue abx cx report noted can stop abx after today rest as per the team
== END 2018-05-18 11:34 | disposition home or self-care (01) | DRG 871 ==
LOC: JER 10:50 → JERBED 13:10 → J8W 20:15
PROVIDERS: ADMIT Internal Medicine; ATTEND Internal Medicine
DX: A41.81 Sepsis due to Enterococcus (principal); K85.90 Acute pancreatitis without necrosis or infection, unspecified; E11.9 Type 2 diabetes mellitus without complications; I25.10 Atherosclerotic heart disease of native coronary artery without angina pectoris; I25.2 Old myocardial infarction; Z87.891 Personal history of nicotine dependence; K59.00 Constipation, unspecified; Z79.84 Long term (current) use of oral hypoglycemic drugs; E78.5 Hyperlipidemia, unspecified; I44.0 Atrioventricular block, first degree; R19.7 Diarrhea, unspecified; N20.0 Calculus of kidney
CPT/HCPCS: 36415; 71045-TC-FY; 74176-TC; 80053; 81003; 82803; 82962; 83036; 83605; 83690; 83880; 84484; 85025; 85027; 85610; 85730; 86618; 86753; 87040; 87086; 87186; 93005; 93010; 93306-TC; 97116-GP; 97161-GP; 99284-25; J0131; J7030

== ENCOUNTER 2018-08-03 10:18 | Emergency (ER) | payer OTHER ==
[2018-08-03 10:34] VITALS: TEMP 97.7; BMI 25.7
--- NOTE | 2018-08-03 11:38 | PDOC ---
History of Present Illness - General Chief Complaint: Pain, Acute Stated Complaint: RTJulieta SOTELO PAIN/uncontrolled gluose Time Seen by Provider: 08/03/18 11:11 History Source: Patient, Spouse Exam Limitations: No Limitations - History of Present Illness Initial Comments: 08/03/18 11:31 88 y/o male with PMH of DM, CAD, HTN, HLD presents to the ED with pain in right shoulder and elevated blood sugar. As per patient and his his right shoulder pain began last Monday while he was cutting meat. He denies any fall or trauma to the area- he has tried taking advil 3 times a day with slight relief. He denies any numbness or tingling to the area however states that it is slightly weak. He saw his primary care doctor yesterday who gave him percocet and told him to return to his office on Monday if he is not feeling any better. Patients brought him in today because his blood sugars were very elevated. His sugars normally range in the 150's-160's however the last 2- 3 readings have been in the high 200's low 300's; he has not had any changes to his diabetes medications however he does endorse that he is urinating more frequently over the past few days. He denies any chest pains, shortness of breath nausea/vomiting but does endorse a decrease in his appetite but no recent weight loss; no sick contacts or any recent travel. 08/03/18 11:40 08/03/18 11:43 Timing/Duration: 1 week Severity: mild Modifying Factors: improves with: immobilization, medication Associated Symptoms: reports: loss of appetite. denies: chest pain, cough Past History - Travel Traveled outside of the country in the last 30 days: No Close contact w/someone who was outside of country & ill: No - Past Medical History Allergies/Adverse Reactions: Allergies Allergy/AdvReac Type Severity Reaction Status Date / Time No Known Drug Allergies Allergy Verified 08/03/18 10:34 Home Medications: Ambulatory Orders Aspirin [ASA -] 81 mg PO DAILY 06/04/12 Metoprolol Succinate [Toprol XL -] 25 mg PO DAILY 06/04/12 metFORMIN HCL [Glucophage -] 1,000 mg PO BID 06/04/12 Olmesartan Medoxomil [Benicar -] 20 mg PO DAILY 02/03/13 Atorvastatin Ca [Lipitor] 20 mg PO HS 04/27/15 Sitagliptin Phosphate [Januvia -] 100 mg PO DAILY 04/27/15 Anemia: Yes Cardiac Disorders: Yes ([place] X2) COPD: No Diabetes: Yes (NIDDM) HTN: Yes Hypercholesterolemia: Yes - Immunization History Td Vaccination: No TDAP Vaccination: No Immunization Up to Date: Yes - Suicide/Smoking/Psychosocial Hx Smoking Status: No Smoking History: Never smoked Years of Tobacco Use: 0 Have you smoked in the past 12 months: No Number of Cigarettes Smoked Daily: 0 If you are a former smoker, when did you quit?: 15 yrs ago Cigars Per Day: 0 Hx Alcohol Use: No Drug/Substance Use Hx: No Substance Use Type: None Hx Substance Use Treatment: No Review of Systems - Review of Systems Able to Perform ROS?: Yes Is the patient limited Croatian proficient: No Constitutional: No: Weakness HEENTM: No: Blurred Vision Respiratory: No: Shortness of Breath Cardiac (ROS): No: Chest Pain ABD/GI: No: Nausea, Vomiting : No: Burning, Dysuria Musculoskeletal: Yes: Joint Pain (right shoulder pain ) Neurological: No: Headache, Numbness *Physical Exam - Vital Signs Last Vital Signs Temp Pulse Resp BP Pulse Ox 97.7 F 88 16 105/63 100 08/03/18 10:30 08/03/18 10:30 08/03/18 10:30 08/03/18 10:30 08/03/18 10:30 - Physical Exam General Appearance: Yes: Nourished Neck: positive: Normal Thyroid Respiratory/Chest: positive: Lungs Clear, Normal Breath Sounds Cardiovascular: positive: Regular Rhythm, Regular Rate, S1, S2 Gastrointestinal/Abdominal: positive: Flat, Soft. negative: Tender Musculoskeletal: negative: CVA Tenderness Neurologic: positive: Fully Oriented, Alert, Motor Strength 5/5 (4/5 RUE ; 5/5 LUE) ED Treatment Course - LABORATORY CBC & Chemistry Diagram: 08/03/18 11:35 08/03/18 11:35 - RADIOLOGY Radiology Studies Ordered: Category Date Time Status SHOULDER-RIGHT [RAD] Stat Radiology 08/03/18 11:30 Ordered Medical Decision Making - Medical Decision Making 08/03/18 11:46 cbc/cmp/ xray pain control reassess *DC/Admit/Observation/Transfer Diagnosis at time of Disposition: Shoulder pain - Discharge Dispostion Disposition: HOME Condition at time of disposition: Good - Referrals Referrals: Tyrone Jensen MD [Primary Care Provider] - Rei Hare DO [Staff Physician] - - Patient Instructions Printed Discharge Instructions: DI for Rotator Cuff Injury Additional Instructions: please follow up with Dr. Jensen within one week we are referring you to an orthopedist, Dr. Hare that we would like you to follow up with within one week please monitor your sugars and if you are seeing continued elevated readings please go to see your PCP to possibly adjust your medications please take tylenol for pain - Post Discharge Activity - Attestations Physician Attestion: 08/03/18 13:40 Kiana Gaspar
[2018-08-03 12:09] LABS: BASO % 0.8 % (0-2.0); EOS % 0.7 % (0-4.5); HEMATOCRIT 36.6 % (35.4-49); HEMOGLOBIN 12.2 GM/dL (11.7-16.9); MCH 29.1 pg (25.7-33.7); MCHC 33.3 g/dl (32.0-35.9); MEAN CELL VOLUME 87.5 fl (80-96); MEAN PLT VOLUME 6.3 fl (7.5-11.1); MONO % 10.9 % (3.8-10.2); NEUT % 69.6 % (42.8-82.8); PLATELET COUNT 386 K/MM3 (134-434); RBC 4.19 M/mm3 (4.00-5.60); WHITE BLOOD COUNT 8.2 K/mm3 (4.0-10.0)
[2018-08-03 12:25] LABS: ALBUMIN 3.2 g/dl (3.4-5.0); ALK PHOS 88 U/L (45-117); ANION GAP 5 MMOL/L (8-16); BILIRUBIN,TOTAL 0.3 mg/dL (0.2-1); BLOOD UREA NITROGEN 14 mg/dL (7-18); CHLORIDE 102 mmol/L (98-107); CO2 31 mmol/L (21-32); CREATININE 0.9 mg/dL (0.55-1.3); GLUCOSE,RANDOM 239 mg/dL (74-106); POTASSIUM 4.7 mmol/L (3.5-5.1); SGOT/AST 11 U/L (15-37); SGPT/ALT 17 U/L (13-61); SODIUM 137 mmol/L (136-145); TOT PROT 7.1 g/dl (6.4-8.2)
[2018-08-03] MEDS ORDERED: KETOROLAC TROMETHAMINE 15 MG/ML VIAL IVPUSH ONE (12:33)
[2018-08-03] MEDS ORDERED: KETOROLAC TROMETHAMINE 15 MG/ML VIAL ONE (12:40)
[2018-08-03 14:00] VITALS: BP 118/72; PULSE 84
--- NOTE | 2018-08-03 14:12 | PDOC ---
Documentation entered by Melissa Reynoso SCRIBE, acting as scribe for Agata Das MD. Agata Das MD: This documentation has been prepared by the Edgardo lim Daisy, SCRIBE, under my direction and personally reviewed by me in its entirety. I confirm that the documentation accurately reflects all work, treatment, procedures, and medical decision making performed by me. Attending Attestation - Resident Resident Name: ChasityKiana - ED Attending Attestation I have performed the following: I have examined & evaluated the patient, The case was reviewed & discussed with the resident, I agree w/resident's findings & plan - HPI HPI: 08/03/18 13:35 The patient is a 88 YOM with a PMH of DM, CAD, HTN, and HD presents to the ED for evaluation of right shoulder pain that began in the setting of cutting meat a week ago. Denies any trauma to the right shoulder. Denies recent falls. Has been taking advil and tylenol with no relief. Patient was seen by his PCP yesterday and given percocets, which he took 3 of with no improvement. Patient is also complaining of elevated blood glucose readings since last night. Allergies: NKDA Social Hx: Denies toxic habits Surgeries: Denies - Physicial Exam PE: 08/03/18 13:58 ADULT EXAM GENERAL: Awake, alert, and fully oriented, in no acute distress HEAD: No signs of trauma LUNGS: Breath sounds equal, clear to auscultation bilaterally. No wheezes, and no crackles HEART: Regular rate and rhythm, normal S1 and S2, no murmurs, rubs or gallops ABDOMEN: Soft, nontender, normoactive bowel sounds. No guarding, no rebound. No masses EXTREMITIES: (+) Unable to abduct the right arm. No tenderness. No bony deformities. No edema. No clubbing or cyanosis. No cords, erythema. NEUROLOGICAL: Cranial nerves II through XII grossly intact. Normal speech, normal gait - Medical Decision Making 08/03/18 14:10 Pt presents to the ED complaining of R shoulder pain and elevated FS. Shoulder pain is consistent with rotator cuff tear. Will refer to ortho. FS is 239-- will refer to PMD for improved glycemic control.
== END 2018-08-03 14:00 | disposition home or self-care (01) ==
LOC: JER 10:18
PROC: 3E0333Z Introduction of Anti-inflammatory into Peripheral Vein, Percutaneous Approach (ICD-10-PCS; principal; 2018-08-03)
DX: M25.511 Pain in right shoulder (principal); E11.9 Type 2 diabetes mellitus without complications; I25.10 Atherosclerotic heart disease of native coronary artery without angina pectoris; I10 Essential (primary) hypertension; E78.5 Hyperlipidemia, unspecified; I25.2 Old myocardial infarction; Z87.891 Personal history of nicotine dependence
CPT/HCPCS: 36415; 73030-TC-RT-FY; 80053; 84484; 85025; 85651; 86140; 96374; 99282-25

== ENCOUNTER 2018-08-12 16:45 | Emergency (ER) | payer OTHER ==
[2018-08-12 16:50] VITALS: BP 131/66; PULSE 80; TEMP 97.6; BMI 24.3
[2018-08-12] MEDS ORDERED: ACETAMINOPHEN 325 MG TABLET (FP) PO ONE (17:10)
--- NOTE | 2018-08-12 18:06 | PDOC ---
Documentation entered by Asia Mirza SCRIBE, acting as scribe for Parag Chatman MD. Parag Chatman MD: This documentation has been prepared by the Yuki lim Nirvannie, SCRIBE, under my direction and personally reviewed by me in its entirety. I confirm that the documentation accurately reflects all work, treatment, procedures, and medical decision making performed by me. History of Present Illness - General Chief Complaint: Injury Stated Complaint: FALL Time Seen by Provider: 08/12/18 17:07 History Source: Patient Exam Limitations: No Limitations - History of Present Illness Initial Comments: 08/12/18 17:56 The patient is a 88 year old male, with a significant past medical history of CAD (s/p CA 15 years ago), hypertension, hyperlipidemia, chronic shoulder pain, diabetes, who presents to the emergency department s/p mechanical fall with left knee pain. As per patient, he was attempting to reach for something when he felt a sharp pain in his left knee subsequently falling on the floor on his buttocks. He was able to use his arm to hold onto something to break the momentum f his fall. Denies any head injury/loc, neck pain, back pain. He denies any recent fevers, chills, headache or dizziness. He denies any recent chest pain or shortness of breath. He denies any recent dysuria or hematuria. Allergies: NKDA Primary Care Physician: Tyrone Gonsalves Past History - Past Medical History Allergies/Adverse Reactions: Allergies Allergy/AdvReac Type Severity Reaction Status Date / Time No Known Drug Allergies Allergy Verified 08/03/18 10:34 Home Medications: Ambulatory Orders Aspirin [ASA -] 81 mg PO DAILY 06/04/12 Metoprolol Succinate [Toprol XL -] 25 mg PO DAILY 06/04/12 metFORMIN HCL [Glucophage -] 1,000 mg PO BID 06/04/12 Olmesartan Medoxomil [Benicar -] 20 mg PO DAILY 02/03/13 Atorvastatin Ca [Lipitor] 20 mg PO HS 04/27/15 Sitagliptin Phosphate [Januvia -] 100 mg PO DAILY 04/27/15 Anemia: Yes Cardiac Disorders: Yes (CA X2) COPD: No Diabetes: Yes (NIDDM) HTN: Yes Hypercholesterolemia: Yes - Immunization History Td Vaccination: No TDAP Vaccination: No Immunization Up to Date: Yes - Suicide/Smoking/Psychosocial Hx Smoking Status: No Smoking History: Unknown if ever smoked Years of Tobacco Use: 0 Have you smoked in the past 12 months: No Number of Cigarettes Smoked Daily: 0 If you are a former smoker, when did you quit?: 15 yrs ago Cigars Per Day: 0 Information on smoking cessation initiated: No Hx Alcohol Use: No Drug/Substance Use Hx: No Substance Use Type: None Hx Substance Use Treatment: No Review of Systems - Review of Systems Able to Perform ROS?: Yes Comments:: 08/12/18 17:57 CONSTITUTIONAL: No reported: Fever, Chills, Diaphoresis, Generalized Weakness, Malaise, Loss of Appetite CARDIOVASCULAR: No reported: Chest Pain, Syncope, Palpitations, Irregular Heart Rate, Lightheadedness, Peripheral Edema RESPIRATORY: No reported: Cough, Shortness of Breath, SOB with Exertion, Orthopnea, Wheezing , Stridor, Hemoptysis GASTROINTESTINAL: No reported: Abdominal pain, Abdominal Distension, Nausea, Vomiting, Diarrhea, Melena, Hematochezia GENITOURINARY: No reported: Dysuria, Frequency, Urgency, Hesitancy, Flank Pain, Genital Pain MUSCULOSKELETAL: Present: Left knee pain. No reported:Back pain, Neck Pain SKIN: No reported: Rash, Itching, Pallor NEUROLOGIC: No reported: Headache, Focal Weakness, Paresthesias, Vertigo, Lightheadedness, Unsteady Gait, Seizure, Mental Status Changes, Incontinence PSYCHIATRIC: No reported: Anxiety, Depression All Other Systems: Reviewed and Negative *Physical Exam - Vital Signs Last Vital Signs Temp Pulse Resp BP Pulse Ox 97.6 F 80 16 131/66 100 08/12/18 16:47 08/12/18 16:47 08/12/18 16:47 08/12/18 16:47 08/12/18 16:47 - Physical Exam Comments: 08/12/18 17:38 GENERAL: The patient is awake, alert, and fully oriented, Nontoxic - in no acute distress. HEAD: Normocephalic, atraumatic. EYES: extraocular movements intact, sclera anicteric, conjunctiva clear. ENT: Normal voice, Moist mucous membranes. NECK: Normal range of motion, supple LUNGS: Breath sounds equal, clear to auscultation bilaterally. No wheezes, no rhonchi, no rales. HEART: Regular rate and rhythm, normal S1 and S2 without murmur, rub or gallop. ABDOMEN: Soft, nontender, No guarding, no rebound. No CVA tenderness Back: No midline tenderness to the cervical, thoracic or lumbar spine Musculoskelatal: FROM of b/l shoulders, elbows, wrist. FROM of hips, ankles - No signs of ecchymosis, erythema, or crepitus noted on palpation extremities, chest wall, clavicals, ribs, back. Mild limintation of ROM of L knee at approx 115 degrees of flexion. No focal bony ttp but there is minimal ttp at the joint space of L knee inferior to patella. no effusions appreaciated NEUROLOGICAL: No facial assymetry, Normal speech, normal symmetric movementof extremities PSYCH: Normal mood, normal affect. SKIN: Warm, Dry, normal turgor, General Appearance: Yes: Nourished ED Treatment Course - RADIOLOGY Radiology Studies Ordered: Category Date Time Status KNEE 3 POS-LEFT [RAD] Stat Radiology 08/12/18 17:10 Taken - Medications Given in the ED: ED Medications Discontinued Medications Generic Name Dose Route Start Last Admin Trade Name Freq PRN Reason Stop Dose Admin Acetaminophen 650 mg 08/12/18 17:10 08/12/18 17:24 Tylenol - PO 08/12/18 17:11 650 mg ONCE ONE Administration Medical Decision Making - Medical Decision Making 08/12/18 17:40 ptpresent sp fall. felt weakness of L knee when reaching for something, fell on his behind and was able to break fall with his arm. no head injury, neck pain, back pain, numbnes/tingling/weakness, n/v, vision changes, cp, sob, palpitations , diarrhea, melena, bpr, dysuria. on exam pt with mild ttp to L knee at joint space, no focal bony ttp, will obtain xrya to r/o fx tylenol for pain willr eassess 08/12/18 18:08 The patient's x-rays negative for acute fracture or dislocation Patient is feeling better with Tylenol We'll discharge patient follow up with orthopedics Return precautions were discussed A portion of this note was documented by scribe services under my direction. I have reviewed the details of the note, within reason, and agree with the documentation with the following case summary and management plan written by me *DC/Admit/Observation/Transfer Diagnosis at time of Disposition: Knee pain, left Qualifiers: Chronicity: acute Qualified Code(s): M25.562 - Pain in left knee Fall Qualifiers: Encounter type: initial encounter Qualified Code(s): W19.XXXA - Unspecified fall, initial encounter - Discharge Dispostion Disposition: HOME Condition at time of disposition: Improved Decision to Admit order: No - Referrals Referrals: Rogelio Garcia DO [Staff Physician] - - Patient Instructions Printed Discharge Instructions: DI for Knee Pain Additional Instructions: Return to the emergency department immediately with ANY new, persistent or worsening symptoms. Take Tylenol as needed for discomfort. Make sure you use your walker or assistance as needed. You MUST call and follow up with your doctor tomorrow for further evaluation of your symptoms. Results were discussed with you. Please make sure your doctor reviews the results of your emergency evaluation. Print Language: TURKMEN - Post Discharge Activity
== END 2018-08-12 18:32 | disposition home or self-care (01) ==
LOC: JER 16:45
DX: M25.562 Pain in left knee (principal); Z87.891 Personal history of nicotine dependence; I10 Essential (primary) hypertension; I25.2 Old myocardial infarction; I25.10 Atherosclerotic heart disease of native coronary artery without angina pectoris; E78.5 Hyperlipidemia, unspecified; G89.29 Other chronic pain; E11.9 Type 2 diabetes mellitus without complications
CPT/HCPCS: 73562-TC-LT-FY; 99282-25

== ENCOUNTER 2018-08-15 09:19 | Emergency (ER) | payer OTHER ==
[2018-08-15 09:28] VITALS: TEMP 97.7; BMI 24.3
--- NOTE | 2018-08-15 09:35 | PDOC ---
History of Present Illness - General Chief Complaint: Chronic pain Stated Complaint: LT KNEE PAIN Time Seen by Provider: 08/15/18 09:34 - History of Present Illness Initial Comments: John Estevez is an 88yo man with a PMH of CAD s/p [place] (2003), HTN, HLD, DM, chronic shoulder pain due to rotator cuff tear, seen in the ED on 08/12 with left knee pain following a mechanical fall who presents to the ED with continued left knee pain and swelling. He states that he has had difficulty walking, especially when turning corners, due to the pain. He also has increased pain when sitting down. He states that he ends up "falling" the last 6 -8 inches to the chair/toilet because of severe pain in his knee. He states that the pain is worst at the upper medial edge of the knee, non-radiating, and sharp. His states that she is also concerned because he has notable swelling behind his knee, though Mr Estevez denies any significant pain at that location. His says that yesterday there was a focal area of swelling at the posterior lateral knee. One of their neighbors is a nurse, and the neighbor apparently stated that he might have a blood clot behind his knee. However, neither the patient nor his notices the focal swelling today. He and his family report that he has been taking 1000mg acetaminophen 1-2 times per day as well as applying ice to his knee 1-2 times per day. They were recluctant to take medication more frequently because "he already takes a lot of medicines." Mr Estevez reports that he had more pain relief from ibuprofen but wasn't sure he was supposed to take it. He was seen at physical therapy, where he is seen for his shoulder pain, and they plan to start therapy for his knee as well. However, he was not able to get an appointment with his PM&R physician until tomorrow. Past History - Past Medical History Allergies/Adverse Reactions: Allergies Allergy/AdvReac Type Severity Reaction Status Date / Time No Known Drug Allergies Allergy Verified 08/15/18 09:25 Home Medications: Ambulatory Orders Aspirin [ASA -] 81 mg PO DAILY 06/04/12 Metoprolol Succinate [Toprol XL -] 25 mg PO DAILY 06/04/12 metFORMIN HCL [Glucophage -] 1,000 mg PO BID 06/04/12 Olmesartan Medoxomil [Benicar -] 20 mg PO DAILY 02/03/13 Atorvastatin Ca [Lipitor] 20 mg PO HS 04/27/15 Sitagliptin Phosphate [Januvia -] 100 mg PO DAILY 04/27/15 Anemia: Yes Cardiac Disorders: Yes ([place] X2) COPD: No Diabetes: Yes (NIDDM) HTN: Yes Hypercholesterolemia: Yes - Immunization History Td Vaccination: No TDAP Vaccination: No Immunization Up to Date: Yes - Suicide/Smoking/Psychosocial Hx Smoking Status: No Smoking History: Never smoked Years of Tobacco Use: 0 Have you smoked in the past 12 months: No Number of Cigarettes Smoked Daily: 0 If you are a former smoker, when did you quit?: 15 yrs ago Cigars Per Day: 0 Information on smoking cessation initiated: No Hx Alcohol Use: No Drug/Substance Use Hx: No Substance Use Type: None Hx Substance Use Treatment: No Review of Systems - Review of Systems Comments:: General: No fevers, no chills, no weight or appetite change, no malaise HEENT: No changes in vision, no changes in hearing, no congestion, no sore throat CV: No chest pain, no palpitations, no LE edema Pulm: No SOB, no cough, no wheezing GI: No nausea or vomiting, no change in bowel habits, no melena : No frequency, no urgency, no dysuria Musc: See HPI Skin: No rash, no lesions, no erythema Endo: No excessive thirst, no heat/cold intolerance Heme: No unusual bruising or bleeding, no swollen glands Neuro: No syncope, no numbness/tingling, no focal weakness Vasc: No claudication Psych: No recent change in mood, no SI or HI *Physical Exam - Vital Signs Last Vital Signs Temp Pulse Resp BP Pulse Ox 97.7 F 91 H 17 90/47 L 99 08/15/18 09:26 08/15/18 09:26 08/15/18 09:26 08/15/18 09:26 08/15/18 09:26 - Physical Exam Comments: General: Comfortable, no acute distress HEENT: PERRL, EOMI, MMM, voice normal Cards: RRR, no murmur appreciated Pulm: Comfortable on room air, clear to auscultation bilaterally Abd: Soft, nontender, nondistended Ext: LLE with visible swelling to knee. No focal TTP. Negative anterior drawer. Palpable swelling/edema to popliteal fossa w/o TTP. No erythema, no bruising. Observed standing w/ weight on BLE. Vasc: Extremities WWP. 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 - Knee xrays completed on previous visit. No fracture - Acetaminophen 975mg for pain - Duplex US LLE to r/o thrombus or cyst, though most likely pain and swelling and due to soft tissue injury and inadequate pain control including use of OTC medications and ice at home. 08/15/18 12:07 - Feels improved after acetaminophen - US w/ 5.9cm Marc's cyst - Spoke to Dr Hare; will be seeing at 9am appointment tomorrow - TAYA wrap and knee immobilizer placed. Pt able to ambulate without difficulty. Observed getting into and out of a chair, also. Feels that his knee is more stable and is now ambulating normally without assistance - Will d/c home to follow up with ortho tomorrow. Discussed home care w/ Mr Estevez and his at length. Both understand and agree with the plan. Seen an discussed with Dr Davies. Kelsie Santiago PGY1 *DC/Admit/Observation/Transfer Diagnosis at time of Disposition: Marc's cyst of knee, Left knee pain - Discharge Dispostion Disposition: HOME Condition at time of disposition: Stable Decision to Admit order: No - Referrals Referrals: Rei Hare DO [Staff Physician] - - Patient Instructions Printed Discharge Instructions: DI for Marc's Cyst Additional Instructions: Discharge Instructions: You were seen in the emergency department for left knee pain. You had an ultrasound showing a Marc's Cyst (fluid filled collection) behind the knee. Home Care and Follow Up: - Wear your TAYA wrap and knee immobilizer as needed for comfort and when walking - Ask for assistance or use your cane when walking, especially when transferring to a chair - If you have numbness/tingling, swelling or redness in the foot and ankle, remove the wrap and immobilizer. The sensation should resolve within a few minutes. If it does not, return to the ED. - You may use over the counter medications as needed for pain at home. 650- 1000mg acetaminophen (Tylenol) or 600mg ibuprofen (Motrin or Advil) can be used every 6-8 hours. If needed for continued pain, these medications may be alternated every 3-4 hours. For example, if you take ibuprofen at 9am, you may take acetaminophen at noon, ibuprofen at 3pm, etc. - It is strongly recommended that you take ibuprofen with food to help prevent stomach irritation. If you are taking it for more than a day or two, you may consider taking an acid medication such as Pepcid or Xantac, available over the counter, to protect your stomach. This should be taken first thing in the morning 30-60 minutes before any food or medications. - Try using an ice pack for 20 minutes every hour for additional pain control and to reduce swelling. - Keep your leg elevated as much as possible, whenever you are not standing or walking. - Rest your leg until you are seen by orthopedic surgery. - Please go to your previously schedule appointment with ortho tomorrow. - Seek immediate medical care if you have significant worsening of your symptoms , you are unable to walk, you have severe pain not improved with medications, you have persistent numbness in your foot, or you have any other medical emergency. - Post Discharge Activity
[2018-08-15 09:52] VITALS: PULSE 89
[2018-08-15] MEDS ORDERED: ACETAMINOPHEN 325 MG TABLET (FP) PO ONE (10:06)
[2018-08-15] MEDS ORDERED: ACETAMINOPHEN 325 MG TABLET (FP) ONE (10:10)
[2018-08-15 11:43] VITALS: BP 117/59
--- NOTE | 2018-08-15 12:18 | PDOC ---
Documentation entered by Lakshmi Peña SCRIBE, acting as scribe for Winter Davies MD. Winter Davies MD: This documentation has been prepared by the lilianibe, Lakshmi Peña SCRIBE, under my direction and personally reviewed by me in its entirety. I confirm that the documentation accurately reflects all work, treatment, procedures, and medical decision making performed by me. Attending Attestation - Resident Resident Name: Kelsie Santiago - ED Attending Attestation I have performed the following: I have examined & evaluated the patient, The case was reviewed & discussed with the resident, I agree w/resident's findings & plan, Exceptions are as noted - HPI HPI: 08/15/18 10:52 The patient is an 88 year old male with past medical history of hypertension, hyperlipidemia, diabetes, CAD s/p [place] who presents to the ED with complaints of left knee pain x3 days. Patient fell three days ago stating his legs gave out and injured his left knee. He was evaluated in the ED and an x-ray was done which was negative. Since then, he has been complaining of left knee pain and swelling. Patient states he can ambulate with a cane and with the help of his . His pain has not been relieved by ice or Tylenol. Patient also reports he s been going to PT for the pain and has an appointment with PM&R (ortho?) tomorrow. He did not take anything for his pain today. Denies any numbness or tingling. Denies any further falls. Denies any fevers or chills. PCP: Dr. Jensen - Physicial Exam PE: 08/15/18 10:43 GENERAL: The patient is in no acute distress. ENT: Ears normal, nares patent, oropharynx clear without exudates. Moist mucous membranes. NECK: Normal range of motion, supple LUNGS: Breath sounds equal, clear to auscultation bilaterally. No wheezes, and no crackles. HEART:Regular rate and rhythm, normal S1 and S2 without murmur, rub or gallop. ABDOMEN: Soft, nontender, normoactive bowel sounds. EXTREMITIES: Normal range of motion, no edema. NEUROLOGICAL: Cranial nerves II through XII grossly intact. Normal speech. No focal neurological deficits. SKIN: Warm, Dry, normal turgor, no rashes or lesions noted. - Medical Decision Making 08/15/18 10:11 Mr Estevez is an 88 yo M h/o CAD (s/p [place] 15 years ago), hypertension, hyperlipidemia, chronic shoulder pain, diabetes, who presents to the emergency department again s/p s/p mechanical fall with left knee pain. Pt was seen in the ER 3 days ago for the same complaint He has follow up with PM&R, has not followed up with Ortho as recommended Pt is ambulatory but knee is painful when going around corners and as he is sitting Denies any head injury/loc, neck pain, back pain. Notes knee swelling 08/15/18 10:13 Will do: Duplex - Pt family concerned about DVT, Will rule out Bakers cyst Will give tylenol for pain No tenderness overlying the tibeal plateau Will ambulate patient to re assess need for CT 08/15/18 10:44 US: Bakers cyst 5.9 x 1.4 cm 08/15/18 12:16 Placed in Knee immobilizer Pt ambulated with a steady gait once given knee support Pt has an appointment tomorrow at 9am with Dr Manley Clinical impression: knee injury, initial presentation Likely ligamentous, injury initial presentation
== END 2018-08-15 12:24 | disposition home or self-care (01) ==
LOC: JER 09:19
DX: M71.22 Synovial cyst of popliteal space [Baker], left knee (principal); I25.10 Atherosclerotic heart disease of native coronary artery without angina pectoris; I25.2 Old myocardial infarction; I10 Essential (primary) hypertension; E78.5 Hyperlipidemia, unspecified; E11.9 Type 2 diabetes mellitus without complications; G89.29 Other chronic pain; Z87.891 Personal history of nicotine dependence; E78.00 Pure hypercholesterolemia, unspecified
CPT/HCPCS: 93971-TC; 99282-25

== ENCOUNTER 2021-02-16 04:15 | Day surgery (SDC) | payer OTHER ==
[2021-02-12 14:04] VITALS: BMI 25.7
[2021-02-16] MEDS ORDERED: MIDAZOLAM HCL 2 MG/2 ML SINGLE DOSE VIAL ONE (09:17)
[2021-02-16] MEDS ORDERED: ceFAZolin SODIUM 1 GM VIAL IVPB ONE (09:55)
[2021-02-16] MEDS ORDERED: PROPOFOL 20 ML ONE (10:07)
[2021-02-16] MEDS ORDERED: ceFAZolin SODIUM 1 GM VIAL ONE (10:07)
[2021-02-16 11:24] VITALS: BP 123/45; PULSE 50; TEMP 97.1
== END 2021-02-16 11:35 | disposition home or self-care (01) ==
LOC: JASU-SURG 04:15
PROVIDERS: ATTEND Urology
PROC: 0TF4XZZ Fragmentation in Left Kidney Pelvis, External Approach (ICD-10-PCS; principal; 2021-02-16 09:30)
DX: N20.0 Calculus of kidney (principal); R31.9 Hematuria, unspecified; E11.9 Type 2 diabetes mellitus without complications; Z79.84 Long term (current) use of oral hypoglycemic drugs
CPT/HCPCS: 82962

== ENCOUNTER 2021-07-03 10:37 | Emergency (ER) | payer OTHER ==
[2021-07-03 10:46] VITALS: BP 133/55; PULSE 85; TEMP 98.1; BMI 25.7
[2021-07-05 00:06] LABS: SARS-CoV-2 NAA Not Detected (Not Detected)
== END 2021-07-03 13:11 | disposition home or self-care (01) ==
LOC: JER 10:37
DX: J11.1 Influenza due to unidentified influenza virus with other respiratory manifestations (principal)
CPT/HCPCS: 71045-TC-FY; 87804; 99284-25; C9803-CS; U0003; U0005